=== PATIENT | female | born 1960 | race Caucasian/White ===

== ENCOUNTER 2016-09-13 10:27 | Emergency (ER) | payer OTHER ==
--- NOTE | 2016-09-13 11:26 | ED UPPER/LOWER EXTREMITY COMPL ---
History of Present Illness General Chief Complaint: Lower Extremity Problems Stated Complaint: R LEG PAIN Source: patient Exam Limitations: no limitations Vital Signs & Intake/Output Vital Signs & Intake/Output Vital Signs Date Time Temp Pulse Resp B/P Pulse O2 O2 Flow FiO2 Ox Delivery Rate 09/13 1034 98.0 84 20 142/88 98 Room Air Allergies Coded Allergies: No Known Allergies (09/13/16) Reconcile Medications Acamprosate Calcium 333 MG TABLET.DR 2 TAB PO TID UNKNOWN (Reported) Albuterol Sulfate (Proair Hfa) 90 MCG HFA.AER.AD 2 PUF INH Q4-6 PRN PRN BREATHING PROBLEMS (Reported) Clonazepam 0.5 MG TABLET 1 TAB PO TID ANXIETY (Reported) Levothyroxine Sodium 50 MCG TABLET 1 TAB PO DAILY AC THYROID (Reported) Meloxicam (Mobic) 15 MG TABLET 1 TAB PO DAILY PRN PAIN Montelukast Sodium 10 MG TABLET 1 TAB PO DAILY ALLERGIES (Reported) Oxcarbazepine 300 MG TABLET 1 TAB PO BID MENTAL HEALTH (Reported) Oxycodone HCl 5 MG TABLET 1 TAB PO BID PAIN (Reported) Quetiapine Fumarate 300 MG TABLET 1 TAB PO QPM SLEEP (Reported) Tiotropium [place] (Spiriva) 18 MCG CAP.W.DEV 1 CAP INH DAILY BREATHING PROBLEMS (Reported) Triage Note: PT PRESENTS TO ER C/O OF RIGHT LEG PAIN X SEVERAL MONTHS. PT STATES PAIN STARTED IN NOVEMBER AND IS JUST NOT IMPROVING. PT DENIES TRAUMA OR INJURY TO LEG Triage Nurses Notes Reviewed? yes Onset: Gradual Duration: 3 MONTHS Timing: recent history Severity: moderate Severity Numbers: 4 Pain/Injury Location: Right: Leg. Method of Injury: unknown No Modifying Factors: none HPI: Patient is a 55-year-old female presenting to the emergency department with chief complaint of worsening right calf pain and swelling over the past 2-3 months. Denies any specific injury. History of plantar fasciitis on the right. She reports that she wears insoles. Denies numbness or tingling. Nothing seems make it better or worse. Denies taking any medication to help. No history of blood clots. Denies any shortness of breath or chest pain. Denies nausea or vomiting fevers or chills. No recent travel. No recent surgery. Past History Travel History Traveled to [place] past 21 day No Medical History Any Pertinent Medical History? see below for history Neurological: NONE EENT: NONE Cardiovascular: NONE Respiratory: NONE Gastrointestinal: NONE Hepatic: NONE Renal: NONE Musculoskeletal: NONE Psychiatric: bipolar disease, depression Endocrine: hypothyroidism Blood Disorders: NONE Cancer(s): NONE Surgical History Surgical History: non-contributory Psychosocial History What is your primary language Fijian Tobacco Use: Current Daily Use Daily Tobacco Use Amount/Type: => 5 Cigarettes daily Family History Hx Contributory? No Review of Systems Review of Systems Constitutional: Reports: no symptoms. Comments Review of systems: See HPI, All other systems negative. Constitutional, no chills fever or weight loss HEENT: No visual changes no sore throat no congestion Cardiovascular: No chest pain ,palpitation Skin, no jaundice no rashes Respiratory: No dyspnea cough sputum or hemoptysis GI: No nausea no vomiting Muscle skeletal: no back pain, no neck pain, Neurologic: No numbness no confusion Psych: No stress anxiety Immunology: No splenectomy or history of AIDS Physical Exam Physical Exam General Appearance: well developed/nourished, no apparent distress, alert, awake , comfortable Comments: Well-developed well-nourished person in no acute distress HEENT: Pupils equally round and reactive to light and accommodation. Nose is atraumatic. Neck: Normal inspection Back: Nontender Cardiovascular: Regular rate and rhythms no murmurs rubs or gallops, normal JVP CHEST: Regular rate and rhythm no murmurs rubs or gallops, normal JVP Extremity: Mild nonpitting edema noted over the right calf, tenderness to palpation over the right. Pedal pulses are 2+ bilaterally. No pain to palpation in the popliteal region bilaterally. Full range of motion of larks everything without difficulty or pain. No erythema. Neuro: Alert oriented x3, motor sensory normal Skin: No appreciable rash on exposed skin, skin is warm and dry. Psych: Mood and affect is normal, memory and judgment is normal. Progress Differential Diagnosis: contusion, dislocation, DVT, fracture, sprain Plan of Care: Orders Procedure Date/time Status US-UNILATERAL VENOUS DOPPLER 09/13 1125 Active Diagnostic Imaging: Viewed by Me: Ultrasound. Discussed w/RAD: Ultrasound. Radiology Impression: PATIENT: SHIN PANTOJA PRESENT AGE: 55 PATIENT ACCOUNT NO: [id number] : 60 LOCATION: [facility] ORDERING PHYSICIAN: ROBERT RIVERA SERVICE DATE: 09/13/16 EXAM TYPE: US - US-UNILATERAL VENOUS DOPPLER EXAMINATION: US TRIPLEX LOWER EXTREMITY, RIGHT CLINICAL INFORMATION: Right calf pain, swelling. COMPARISON: None. TECHNIQUE: Color-flow triplex imaging with spectral analysis and compression Doppler were performed on the right lower extremity. FINDINGS: Respiratory variation, normal compression and augmented flow are noted throughout the lower extremity. The visualized common femoral vein, superficial femoral vein, profunda femoral vein, popliteal vein and mid calf peroneal and posterior tibial venous segments show no evidence of deep venous thrombosis. There is no Duke's cyst. IMPRESSION: Normal triplex scan without evidence of deep venous thrombosis involving the right lower extremity. DICTATED BY: MADDI VALENZUELA MD DATE/TIME DICTATED:09/13/161148 PULP COOKER:SARAH DATE/TIME TRANSCRIBED:1148 CONFIDENTIAL, DO NOT COPY WITHOUT APPROPRIATE AUTHORIZATION. < Electronically signed in Other Vendor System> SIGNED BY: MADDI VALENZUELA MD 09/13/16 1157 Comments: And pain medication on arrival. Patient is neurovascularly intact. There is edema appreciated in the right calf with pain associated with it. No history of blood clots. Cannot exclude DVT at this time. Patient will for ultrasound. Patient informed of negative ultrasound. Likely muscle strain. Patient will be treated symptomatically with anti-inflammatory. Elevation. She'll follow-up with her primary care physician. Departure Departure Time of Disposition: 1202 Disposition: HOME OR SELF CARE Condition: Stable Clinical Impression Primary Impression: Calf pain Qualifiers: Laterality: right Qualified Code: M79.661 - Pain in right lower leg Referrals: JENIFFER BOBBY MD (PCP/Family) Additional Instructions: Follow-up with your primary care physician call to make an appointment. Rest and elevate leg as much as possible. Make sure you wear supportive shoes. Take Mobic as prescribed to help with pain and inflammation. [facility]. Departure Forms: Customer Survey General Discharge Information Prescriptions: Current Visit Scripts Meloxicam (Mobic) 1 TAB PO DAILY PRN PAIN #20 TAB
[2016-09-13] MEDS ORDERED: ACAMPROSATE CA333 M1 PO (11:47)
[2016-09-13] MEDS ORDERED: SPIRIVA18 MCG INH (11:47)
[2016-09-13] MEDS ORDERED: CLONAZEPAM0.5 M2 PO (11:47)
[2016-09-13] MEDS ORDERED: LEVOTHYROXINE50 MCG PO (11:48)
[2016-09-13] MEDS ORDERED: QUETIAPINE FUM300 M1 PO (11:48)
[2016-09-13] MEDS ORDERED: OXYCODONE HCL5 M1 PO (11:48)
[2016-09-13] MEDS ORDERED: OXCARBAZEPINE300 M1 PO (11:48)
[2016-09-13] MEDS ORDERED: MONTELUKAST SOD10 M1 PO (11:49)
[2016-09-13] MEDS ORDERED: PROAIR HFA8.5 GM INH (11:49)
--- NOTE | 2016-09-13 11:56 | ULTRASOUND REPORT ---
EXAMINATION: US TRIPLEX LOWER EXTREMITY, RIGHT CLINICAL INFORMATION: Right calf pain, swelling. COMPARISON: None. TECHNIQUE: Color-flow triplex imaging with spectral analysis and compression Doppler were performed on the right lower extremity. FINDINGS: Respiratory variation, normal compression and augmented flow are noted throughout the lower extremity. The visualized common femoral vein, superficial femoral vein, profunda femoral vein, popliteal vein and mid calf peroneal and posterior tibial venous segments show no evidence of deep venous thrombosis. There is no Duke's cyst. IMPRESSION: Normal triplex scan without evidence of deep venous thrombosis involving the right lower extremity.
[2016-09-13] MEDS ORDERED: MOBIC15 M1 PO (12:03)
[2016-09-13 12:10] VITALS: BP 137/85
== END 2016-09-13 12:11 ==
LOC: ERH 10:27
DX: M79.661 Pain in right lower leg (principal)